=== PATIENT | female | born 1985 | race Caucasian/White ===

== ENCOUNTER 2017-09-06 20:13 | Emergency (ER) | payer OTHER ==
[2017-09-06] MEDS: FAMOTIDINE 20 MG TAB PO (21:50)
[2017-09-06] MEDS: METHYLPREDNISOLONE 125 MG INJ IM (21:50)
[2017-09-06] MEDS: DIPHENHYDRAMINE 50 MG INJ IM (21:50)
== END 2017-09-06 22:30 | disposition home or self-care (01) ==
LOC: FTE 22:30
DX: L50.9 Urticaria, unspecified (principal)
CPT/HCPCS: 81025; 96372; 99284-25